=== PATIENT | female | born 1985 | race Caucasian/White ===

== ENCOUNTER 2021-05-16 14:28 | Emergency (ER) | payer BC, SELFPAY ==
[2021-05-16 14:34] VITALS: BP 145/86; PULSE 120; RESP 18; TEMP 36.9; O2SAT 100
--- NOTE | 2021-05-16 17:48 | ED.EYEPROB ---
HPI - Eye Problem General Chief complaint: Eye Problems Stated complaint: right eyelid cellulitis Time Seen by Provider: 05/16/21 16:46 Source: patient Mode of arrival: ambulatory Limitations: no limitations History of Present Illness HPI Narrative: 35-year-old female presents to the ED with erythema and discomfort to the right upper eyelid. Symptoms began 3 to 4 days ago. Degree of erythema and swelling have intensified since that time. She is not a contact lens wearer and denies injury to the eye. She denies foreign body entering the eye. No recent history of documented fever, chills, decreased visual acuity, or significant pain with ocular movement. She was in urgent care earlier today and prescribed cephalexin and erythromycin ophthalmic ointment. Patient then began to experience a mild numbness sensation to the right infraorbital tissues, therefore was advised by urgent care to come to the ED for further evaluation. Related Data Allergies Allergy/AdvReac Type Severity Reaction Status Date / Time codeine Allergy Unknown Verified 01/24/10 13:57 Review of Systems Review of Systems: CONSTITUTIONAL: Denies fever, chills, or sweats. EYES: Swelling/redness/discomfort right upper eyelid ENT: Denies rhinorrhea, congestion, sore throat, or otalgia. CARDIOVASCULAR: Denies chest pain, palpitations, or edema. RESPIRATORY: Denies cough or dyspnea. GASTROINTESTINAL: Denies abdominal pain, nausea, vomiting, or diarrhea. GENITOURINARY: Denies dysuria or hematuria. SKIN: Denies rash or itching. MUSCULOSKELETAL: Denies back pain, joint pain, or myalgia. NEUROLOGIC: Denies headache, numbness, dizziness, or weakness. PSYCHIATRIC: Denies anxiety or depression. All systems reviewed & are unremarkable except as noted in HPI and below PMFSH Family History Family History Other Diabetes mellitus Family history of malignant neoplasm of kidney Social History Social History Smoking status: Never smoker Alcohol intake: never Exam Narrative: GENERAL: Well-appearing, well-nourished, and in no acute distress. HEAD: Normocephalic, atraumatic. EYES: OD: Erythema and edema to the upper eyelid. No conjunctival injection. Extraocular movement intact. Pupil is round and reactive. No significant pain with ocular movement. No foreign body or corneal abrasion/ulceration appreciated with fluorescein dye and Shabazz lamp examination. ENT: Nares clear, no rhinorrhea or epistaxis. Mucous membranes moist. Oropharynx without tonsillar hypertrophy exudate or other lesions. Bilateral TMs pearly meier nonbulging NECK: Supple. No adenopathy or masses. No carotid bruits or JVD CHEST: Clear to auscultation. No respiratory distress. No wheezes rales or rhonchi HEART: Regular rate and rhythm. No murmur heard. Normal peripheral pulses. EXTREMITIES: Normal range of motion. No edema. SKIN: Warm, dry, no rash. NEURO: No focal deficits. PSYCH: Normal mood and affect. Course Course Emergency Course: Examination is more in keeping with periorbital cellulitis/preseptal cellulitis. Unremarkable examination of the right globe. I feel management with oral antibiotics is most appropriate at this time. Will Rx Augmentin. First dose given in the ED. Patient to follow-up with ophthalmology if symptoms do not improve. Vital Signs Vital signs: Vital Signs Temperature 98.4 F 05/16/21 14:34 Pulse Rate 120 H 05/16/21 14:34 Respiratory Rate 18 05/16/21 14:34 Blood Pressure 145/86 H 05/16/21 14:34 Pulse Oximetry 100 05/16/21 14:34 Temperature 98.4 F 05/16/21 14:34 Pulse Rate 120 H 05/16/21 14:34 Respiratory Rate 18 05/16/21 14:34 Blood Pressure 145/86 H 05/16/21 14:34 Pulse Oximetry 100 05/16/21 14:34 Critical Care Time Critical Care Time Critical Care Time: No Discharge Plan Discharge Clinical Impression: Pe
[2021-05-16] MEDS: TETRACAINE HCL 0.5% OPHTH SOLN 4 ML BTL 1 DROP (17:56)
[2021-05-16] MEDS: DACRIOSE EYE IRRIGATION 118 ML BOTTLE (17:56)
[2021-05-16] MEDS: FLUORESCEIN SOD 1 MG/STRIP (17:56)
[2021-05-16] MEDS: AMOXICILLIN/CLAVULANATE K 875-125 MG TAB 1 TABLET PO (18:14)
== END 2021-05-16 18:18 | disposition home or self-care (01) ==
PROVIDERS: Emergency Provider Emergency Medicine; PCP Nurse Practitioner Adult Health
DX: L03.213 Periorbital cellulitis (principal)
CPT/HCPCS: 99283; A9270